=== PATIENT | female | born 1970 | race Caucasian/White ===

== ENCOUNTER 2018-05-29 14:54 | Inpatient (IN) | payer MEDICAID ==
[~2018-05-29] VITALS: Ht 157.5 cm; Wt 56.6 kg
[2018-05-29 15:05] VITALS: BP 111/73
[2018-05-29] MEDS ORDERED: LOPERAMIDE HCL 2 MG CAPSULE PO PRN ×2 (15:15→19:15)
[2018-05-29] MEDS ORDERED: GuaiFENesin/D-METHORPHAN [SUGAR-FREE] 200-20MG/10 ML SYRUP UDCUP PO PRN ×2 (15:15→19:15)
[2018-05-29 16:00] VITALS: BP 132/86
[2018-05-29] MEDS ORDERED: CYANOCOBALAMIN 1,000 MCG/ML VIAL IM ONE (16:00)
[2018-05-29] MEDS: LORazepam 2 MG TABLET PO SCH (16:20)
[2018-05-29] MEDS ORDERED: TRAZ-219 PO (16:24)
[2018-05-29] MEDS ORDERED: SERT50TA12 PO (16:24)
[2018-05-29] MEDS: LORazepam 2 MG TABLET PO PRN (16:30)
[2018-05-29 17:00] VITALS: BP 103/62
[2018-05-29] MEDS: THIAMINE HCL 100 MG TABLET PO SCH (17:34)
[2018-05-29 18:00] VITALS: BP 106/71
[2018-05-29 19:00] VITALS: BP 99/61
[2018-05-29] MEDS ORDERED: DOCUSATE SODIUM 100 MG CAPSULE PO PRN (19:15)
[2018-05-29] MEDS ORDERED: CloNIDine HCL 0.1 MG TABLET PO PRN (19:15)
[2018-05-29] MEDS ORDERED: MAGNESIUM HYDROXIDE SUSPENSION 30 ML UDCUP PO PRN (19:15)
[2018-05-29] MEDS ORDERED: ACETAMINOPHEN 325 MG TABLET PO PRN (19:15)
[2018-05-29] MEDS ORDERED: NICOTINE 14 MG/24 HOUR PATCH TD PRN (19:15)
[2018-05-29] MEDS ORDERED: MAG HYDROX/AL HYDROX/SIMETH ES 30 ML SUSPENSION UDCUP PO PRN (19:15)
[2018-05-29] MEDS ORDERED: ALBUTEROL SULFATE HFA 90 MCG/PUFF 8 GM INHALER IH PRN (19:15)
[2018-05-29] MEDS ORDERED: IBUPROFEN 400 MG TABLET PO PRN (19:15)
[2018-05-29] MEDS ORDERED: ONDANSETRON HCL 4 MG TABLET PO PRN (19:15)
[2018-05-29] MEDS ORDERED: PETROLATUM,WHITE 71 GM JELLY TP PRN (19:15)
[2018-05-29 23:06] VITALS: BP 101/64
[2018-05-30] VITALS (9 sets, daily range): BP systolic 98–161; BP diastolic 75–98
[2018-05-30] MEDS: LORazepam 2 MG TABLET PO PRN (05:30)
[2018-05-30] MEDS ORDERED: LORazepam 2 MG TABLET PO PRN (07:00)
[2018-05-30] MEDS: THIAMINE HCL 100 MG TABLET PO SCH ×2 (08:29→17:01)
[2018-05-30] MEDS: LORazepam 2 MG TABLET PO SCH ×4 (08:29→20:10)
[2018-05-30] MEDS: FOLIC ACID 1 MG TABLET PO SCH (08:29)
[2018-05-30] MEDS: MULTIVITAMINS WITH MINERALS, THERAPEUTIC TABLET PO SCH (08:29)
[2018-05-30 08:45] LABS: BASOPHILS % (AUTO) 1.9 % (0.0-2.0); EOSINOPHILS % (AUTO) 1.6 % (1.0-6.0); HEMATOCRIT 39.9 % (36-46); HEMOGLOBIN 13.7 g/dL (12.0-16.0); LYMPHOCYTES # (AUTO) 1.4 K/uL (1.0-4.8); LYMPHOCYTES % (AUTO) 27.6 % (22.0-44.0); MEAN CORPUSCULAR HEMOGLOBIN 33.6 pg (26.0-34.0); MEAN CORPUSCULAR HGB CONC 34.4 G/dL (31.0-37.0); MEAN CORPUSCULAR VOLUME 98 fL (80-100); MONOCYTES # (AUTO) 0.4 K/uL (0.1-1.0); MONOCYTES % (AUTO) 8.9 % (2.0-9.0); PLATELET COUNT (AUTO) 136 K/uL (150-450); RED BLOOD CELL COUNT(AUTO) 4.09 MIL/uL (4.00-5.20); RED CELL DISTRIBUTION WIDTH 13.5 % (11.5-14.5)
[2018-05-30 09:04] LABS: HEMOGLOBIN A1C 5.4 % (4.5-6.2)
[2018-05-30 09:28] LABS: ALANINE AMINOTRANSFERASE 114 U/L (12-78); ALBUMIN 4.1 g/dL (3.4-5.0); ALKALINE PHOSPHATASE 74 U/L (46-116); ANION GAP 7 mmol/L (8-16); ASPARTATE AMINOTRANSFERASE 93 U/L (15-37); BILIRUBIN,TOTAL 0.3 mg/dL (0.1-1.0); CALCIUM, TOTAL 8.8 mg/dL (8.8-10.5); CARBON DIOXIDE 32 mmol/L (22-29); CHLORIDE 103 mmol/L (98-107); CHOL/HDL RATIO 2.8 (3.9-5.7); CHOLESTEROL 245 mg/dL (131-200); CREATININE 0.62 mg/dL (0.60-1.30); FREE T4 (FREE THYROXINE) 0.73 ng/dL (0.76-1.46); GLOMERULAR FILTR. RATE CALC > 60 mL/min (>60); GLUCOSE,RANDOM 98 mg/dL (70-110); HDL CHOLESTEROL 86 mg/dL (40-60); LDL CHOL (CALC.) 122 mg/dL (0-130); POTASSIUM 4.9 mmol/L (3.5-5.1); SODIUM SERUM 142 mmol/L (136-145); THYROID STIMULATING HORMONE 3.66 uIU/mL (0.36-3.74); TOTAL PROTEIN, SERUM 7.3 g/dL (6.4-8.2); TRIGLYCERIDES 185 mg/dL (15-150); UREA NITROGEN, BLOOD 14 mg/dL (7-18)
[2018-05-30] MEDS: SERTRALINE HCL 50 MG TABLET PO SCH (12:29)
[2018-05-30] MEDS: HydrOXYzine PAMOATE 50 MG CAPSULE PO PRN (21:00)
[2018-05-31 06:35] VITALS: BP 149/88
[2018-05-31] MEDS: LEVOTHYROXINE SODIUM 25 MCG TABLET PO SCH (06:37)
[2018-05-31 08:25] VITALS: BP 142/96
[2018-05-31] MEDS: LORazepam 2 MG TABLET PO SCH ×4 (08:41→20:07)
[2018-05-31] MEDS: SERTRALINE HCL 50 MG TABLET PO SCH (08:41)
[2018-05-31] MEDS: THIAMINE HCL 100 MG TABLET PO SCH ×2 (08:41→16:21)
[2018-05-31] MEDS: MULTIVITAMINS WITH MINERALS, THERAPEUTIC TABLET PO SCH (08:41)
[2018-05-31] MEDS: FOLIC ACID 1 MG TABLET PO SCH (08:41)
[2018-05-31 09:30] VITALS: BP 140/80
[2018-05-31 10:00] VITALS: BP 139/97
[2018-05-31 16:01] VITALS: BP 131/66
[2018-05-31 18:08] VITALS: BP 128/66
[2018-05-31] MEDS ORDERED: SIMVASTATIN 10 MG TABLET PO SCH (21:00)
[2018-05-31] MEDS: HydrOXYzine PAMOATE 50 MG CAPSULE PO PRN (21:02)
[2018-06-01 05:47] VITALS: BP 122/67
[2018-06-01] MEDS: LEVOTHYROXINE SODIUM 25 MCG TABLET PO SCH ×2 (06:01→06:30)
[2018-06-01] MEDS ORDERED: LEVOTHYROXINE SODIUM 25 MCG TABLET PO SCH (06:30)
[2018-06-01] MEDS ORDERED: LORazepam 1 MG TABLET PO PRN (07:00)
[2018-06-01] MEDS: FOLIC ACID 1 MG TABLET PO SCH (07:57)
[2018-06-01] MEDS: LORazepam 1 MG TABLET PO SCH ×2 (07:57→12:34)
[2018-06-01] MEDS: MULTIVITAMINS WITH MINERALS, THERAPEUTIC TABLET PO SCH (07:57)
[2018-06-01] MEDS: SERTRALINE HCL 50 MG TABLET PO SCH (07:57)
[2018-06-01 08:10] VITALS: BP 114/89
[2018-06-01] MEDS: THIAMINE HCL 100 MG TABLET PO SCH (08:49)
[2018-06-01] MEDS ORDERED: SIMV5TAB6 PO (12:18)
[2018-06-01] MEDS ORDERED: LEVO25TA9 PO (12:18)
[2018-06-02] MEDS ORDERED: LORazepam 1 MG TABLET PO PRN (07:00)
== END 2018-06-01 13:26 | disposition home or self-care (01) | DRG 751 ==
LOC: B2S 15:13
PROVIDERS: ADMIT Psychiatry & Neurology Psychiatry; ATTEND Psychiatry & Neurology Psychiatry
DX: F33.2 Major depressive disorder, recurrent severe without psychotic features (principal); R45.851 Suicidal ideations; Y90.9 Presence of alcohol in blood, level not specified; R74.0 Nonspecific elevation of levels of transaminase and lactic acid dehydrogenase [LDH]; F10.10 Alcohol abuse, uncomplicated; F41.9 Anxiety disorder, unspecified; E03.9 Hypothyroidism, unspecified; E78.5 Hyperlipidemia, unspecified; Z71.41 Alcohol abuse counseling and surveillance of alcoholic; Z71.51 Drug abuse counseling and surveillance of drug abuser
CPT/HCPCS: 83036; 84439; 84443; J3420